=== PATIENT | male | born 1980 | race Caucasian/White ===

== ENCOUNTER 2020-11-06 06:21 | Inpatient (IN) ==
[~2020-11-06 06:21] MED LIST: Acetaminophen IV 1,000 MG/100 ML BAG IVPB ONE; Famotidine 20 MG/2 ML VIAL IVP ONE; Ringers Solution, Lactated 1,000 ML IVC ONE; Ropivacaine/PF 0.5% 49.24 ML, EPINEPHrine 0.5 MG, cloNIDine 0.08 MG, 0.9 % Sodium Chlor... INTRAART ONE
[2020-11-06] MEDS ORDERED: *HR* FentaNYL (PF) 100 MCG/2 ML VIAL ONE (07:12)
[2020-11-06] MEDS ORDERED: *HR* Midazolam HCl 2 MG/2 ML VIAL ONE (07:12)
[2020-11-06] MEDS ORDERED: *HR* Propofol 200 MG/20 ML VIAL IVP ONE (07:12)
[2020-11-06] MEDS ORDERED: Lidocaine HCL 4 ML Topical Solution (Laryng-O-Jet Kit Sterile Pak) TP ONE (07:12)
[2020-11-06] MEDS ORDERED: Lidocaine -MPF 2% 2 ML VIAL ONE (07:12)
[2020-11-06] MEDS ORDERED: *HR* Succinylcholine 200 MG/10 ML VIAL IVP ONE (07:12)
[2020-11-06] MEDS ORDERED: Ondansetron 4 MG/2 ML VIAL ONE (07:12)
[2020-11-06] MEDS ORDERED: *HR* Rocuronium Bromide 50 MG/5 ML VIAL ONE (07:12)
[2020-11-06] MEDS ORDERED: Vancomycin 1,000 MG VIAL ONE ×2 (07:15→07:25)
[2020-11-06] MEDS ORDERED: *HR* OxyCODONE Immed Rel 5 MG TABLET PO PRN ×2 (07:45→11:41)
[2020-11-06] MEDS ORDERED: Ondansetron 4 MG/2 ML VIAL IVP PRN ×2 (07:45→11:41)
[2020-11-06] MEDS ORDERED: Albuterol 2.5 MG/3 ML NEBULIZER IH PRN (07:45)
[2020-11-06] MEDS ORDERED: Nitroglycerin 0.4 MG TAB.SUBL SL PRN (07:45)
[2020-11-06] MEDS ORDERED: Naloxone 0.4 MG/ML INJ IVP PRN ×2 (07:45→11:41)
[2020-11-06] MEDS ORDERED: Vancomycin 1,500 MG/265 ML IV.SOLN IVPB ONE ×2 (08:00→20:30)
[2020-11-06] MEDS ORDERED: *HR* HYDROMORPHONE 2 MG/ML VIAL ONE ×2 (08:53→10:09)
[2020-11-06] MEDS ORDERED: Sugammadex Sodium 200 MG/2 ML VIAL IV ONE (09:59)
[2020-11-06] MEDS ORDERED: *HR* Labetalol 20 MG/4 ML SYRINGE IVP PRN (10:41)
[2020-11-06] MEDS: *HR* FentaNYL (PF) 100 MCG/2 ML VIAL IVP PRN ×2 (10:53→11:00)
[2020-11-06] MEDS ORDERED: Sennosides 8.6 MG TABLET PO PRN (11:41)
[2020-11-06] MEDS ORDERED: MOM Conc 10 ML UD.LIQ PO PRN (11:41)
[2020-11-06] MEDS ORDERED: *HR* Promethazine 25 MG/ML VIAL IM PRN (11:41)
[2020-11-06] MEDS: *HR* HYDROmorphone 2 MG TABLET PO PRN ×3 (12:08→21:24)
[2020-11-06] MEDS: *HR* OxyCODONE Immed Rel 5 MG TABLET PO PRN (13:05)
[2020-11-06 14:54] LABS: Hematocrit 46.2 % (37.5-50.1); Mean Corpuscular HGB Conc 32.5 g/dL (31.6-35.5); Mean Corpuscular Hemoglobin 29.6 pg (28.0-33.3); Mean Corpuscular Volume 91.1 fL (83.0-100.0); Mean Platelet Volume 10.5 fL (9.4-12.4); Platelet Count 270 K/mcL (140-400); Red Blood Count 5.07 M/mcL (4.19-5.50); Red Cell Distribution Width 13.7 % (11.5-14.5); White Blood Count 26.5 K/mcL (4.3-11.1)
[2020-11-06 15:09] LABS: BUN/Creatinine Ratio 13 (6-26); Blood Urea Nitrogen 15 mg/dL (6-20); Carbon Dioxide 20 mEq/L (23-29); Chloride 103 mEq/L (98-107); Glucose 235 mg/dL (70-105); Osmolality,Calculated 288 (280-300); Potassium 4.4 mEq/L (3.5-5.1); Sodium 135 mEq/L (136-145); eGFR For African Americans > 60 (> 60); eGFR For Non-African Americans > 60 (> 60)
[2020-11-06] MEDS: Ascorbic Acid 500 MG TABLET PO SCH (15:55)
[2020-11-06] MEDS: Gabapentin 300 MG CAPSULE PO SCH ×2 (15:55→20:07)
[2020-11-06 16:00] LABS: Lymphocytes # 2.1 K/mcL (0.6-4.6); Monocytes # 0.5 K/mcL (0.0-1.3); Neutrophils # 23.9 K/mcL (1.6-8.9); Platelet Estimate Normal (Normal)
[2020-11-06 16:42] LABS: C-Reactive Protein 15 mg/L (Less than 10)
[2020-11-07] MEDS: *HR* HYDROmorphone 2 MG TABLET PO PRN ×2 (03:30→11:12)
[2020-11-07] MEDS: Multivit/Ca/Min/Fe/FA 1 TAB TABLET PO SCH (07:41)
[2020-11-07] MEDS: *HR* OxyCODONE Immed Rel 5 MG TABLET PO PRN ×4 (07:41→23:02)
[2020-11-07] MEDS: Gabapentin 300 MG CAPSULE PO SCH ×3 (07:42→21:50)
[2020-11-07] MEDS: Ascorbic Acid 500 MG TABLET PO SCH ×2 (07:42→17:13)
[2020-11-07] MEDS ORDERED: D5% in Water 1,000 ML IVC PRN (09:03)
[2020-11-07] MEDS ORDERED: Dextrose Gel 15 GM/37.5 ML TUBE PO PRN ×2 (09:03)
[2020-11-07] MEDS ORDERED: *HR* Dextrose 50 % in Water (Vial) 50 ML VIAL IVP PRN (09:03)
[2020-11-07 10:45] LABS: Estimated Average Glucose 131 mg/dl; Hemoglobin A1C 6.2 %
[2020-11-07] MEDS: Vancomycin 1,500 MG/265 ML IV.SOLN IVPB SCH ×2 (11:53→23:03)
[2020-11-07] MEDS: Insulin LISPRO 300 UNITS/3 ML VIAL SUBQ SCH ×2 (14:18→17:23)
[2020-11-07] MEDS: Aspirin Enteric Coated 81 MG Tablet PO SCH (15:12)
[2020-11-08] MEDS: *HR* HYDROmorphone 2 MG TABLET PO PRN ×2 (05:10→14:48)
[2020-11-08] MEDS: Aspirin Enteric Coated 81 MG Tablet PO SCH (08:09)
[2020-11-08] MEDS: Ascorbic Acid 500 MG TABLET PO SCH ×2 (08:09→16:30)
[2020-11-08] MEDS: Gabapentin 300 MG CAPSULE PO SCH ×3 (08:09→19:38)
[2020-11-08] MEDS: *HR* OxyCODONE Immed Rel 5 MG TABLET PO PRN ×3 (08:10→19:38)
[2020-11-08] MEDS: Multivit/Ca/Min/Fe/FA 1 TAB TABLET PO SCH (08:10)
[2020-11-08] MEDS: Insulin LISPRO 300 UNITS/3 ML VIAL SUBQ SCH ×3 (08:11→16:24)
[2020-11-08 10:54] LABS: Basophils # 0.1 K/mcL (0.0-0.2); Basophils % 0.7 %; Eosinophils # 0.3 K/mcL (0.0-0.6); Eosinophils % 1.6 %; Hematocrit 45.6 % (37.5-50.1); Hemoglobin 14.9 g/dL (12.9-16.9); Immature Granulocytes % 1.4 % (0-4); Lymphocytes # 4.4 K/mcL (0.6-4.6); Lymphocytes % 24.1 %; Mean Corpuscular HGB Conc 32.7 g/dL (31.6-35.5); Mean Corpuscular Hemoglobin 29.7 pg (28.0-33.3); Mean Platelet Volume 10.7 fL (9.4-12.4); Monocytes # 1.7 K/mcL (0.0-1.3); Monocytes % 9.6 %; Neutrophils # 11.4 K/mcL (1.6-8.9); Platelet Count 236 K/mcL (140-400); Red Blood Count 5.01 M/mcL (4.19-5.50); Segmented Neutrophils % 62.6 %; White Blood Count 18.2 K/mcL (4.3-11.1)
[2020-11-08] MEDS: Vancomycin 1,750 MG/517.5 ML IV.SOLN IVPB SCH ×2 (11:03→22:41)
[2020-11-08 11:15] LABS: BUN/Creatinine Ratio 13 (6-26); Blood Urea Nitrogen 15 mg/dL (6-20); Calcium 8.7 mg/dL (8.6-10.3); Carbon Dioxide 23 mEq/L (23-29); Chloride 101 mEq/L (98-107); Glucose 122 mg/dL (70-105); Osmolality,Calculated 284 (280-300); Sodium 136 mEq/L (136-145); eGFR For African Americans > 60 (> 60); eGFR For Non-African Americans > 60 (> 60)
[2020-11-08] MEDS: Ringers Solution, Lactated 1,000 ML IVC SCH (19:50)
[2020-11-09] MEDS: *HR* OxyCODONE Immed Rel 5 MG TABLET PO PRN ×3 (00:04→21:36)
[2020-11-09] MEDS: Aspirin Enteric Coated 81 MG Tablet PO SCH (07:22)
[2020-11-09] MEDS: Gabapentin 300 MG CAPSULE PO SCH ×3 (07:23→21:33)
[2020-11-09] MEDS: Multivit/Ca/Min/Fe/FA 1 TAB TABLET PO SCH (07:23)
[2020-11-09] MEDS: Ascorbic Acid 500 MG TABLET PO SCH ×2 (07:23→15:51)
[2020-11-09] MEDS: Insulin LISPRO 300 UNITS/3 ML VIAL SUBQ SCH ×3 (09:30→16:13)
[2020-11-09] MEDS: Vancomycin 1,750 MG/517.5 ML IV.SOLN IVPB SCH (10:53)
[2020-11-09] MEDS: *HR* HYDROmorphone 2 MG TABLET PO PRN (10:53)
[2020-11-09] MEDS: Vancomycin 2,000 MG/520 ML IV.SOLN IVPB SCH (23:07)
[2020-11-10 03:34] LABS: eGFR For African Americans > 60 (> 60); eGFR For Non-African Americans > 60 (> 60)
[2020-11-10] MEDS: *HR* OxyCODONE Immed Rel 5 MG TABLET PO PRN ×5 (06:02→23:47)
[2020-11-10] MEDS: Gabapentin 300 MG CAPSULE PO SCH ×3 (07:49→21:39)
[2020-11-10] MEDS: Aspirin Enteric Coated 81 MG Tablet PO SCH (07:49)
[2020-11-10] MEDS: Multivit/Ca/Min/Fe/FA 1 TAB TABLET PO SCH (07:50)
[2020-11-10] MEDS: Ascorbic Acid 500 MG TABLET PO SCH ×2 (07:50→16:45)
[2020-11-10] MEDS: Insulin LISPRO 300 UNITS/3 ML VIAL SUBQ SCH ×3 (07:50→16:45)
[2020-11-10] MEDS: Vancomycin 2,000 MG/520 ML IV.SOLN IVPB SCH ×2 (10:08→23:47)
[2020-11-10] MEDS ORDERED: Lidocaine -MPF 1% 5 ML AMPUL INFILT ONE (11:42)
[2020-11-11 02:25] LABS: Basophils # 0.1 K/mcL (0.0-0.2); Basophils % 0.6 %; Eosinophils # 0.8 K/mcL (0.0-0.6); Eosinophils % 5.2 %; Lymphocytes # 3.6 K/mcL (0.6-4.6); Lymphocytes % 23.9 %; Mean Corpuscular HGB Conc 32.8 g/dL (31.6-35.5); Mean Corpuscular Hemoglobin 29.8 pg (28.0-33.3); Mean Corpuscular Volume 90.9 fL (83.0-100.0); Mean Platelet Volume 9.7 fL (9.4-12.4); Monocytes # 1.3 K/mcL (0.0-1.3); Monocytes % 8.7 %; Platelet Count 255 K/mcL (140-400); Red Blood Count 4.29 M/mcL (4.19-5.50); Red Cell Distribution Width 13.7 % (11.5-14.5); Segmented Neutrophils % 59.6 %
[2020-11-11 02:26] LABS: Hemoglobin 12.8 g/dL (12.9-16.9)
[2020-11-11 02:46] LABS: BUN/Creatinine Ratio 13 (6-26); Blood Urea Nitrogen 13 mg/dL (6-20); C-Reactive Protein 139 mg/L (Less than 10); Calcium 8.3 mg/dL (8.6-10.3); Carbon Dioxide 26 mEq/L (23-29); Chloride 104 mEq/L (98-107); Glucose 122 mg/dL (70-105); Osmolality,Calculated 289 (280-300); Potassium 3.9 mEq/L (3.5-5.1); Sodium 139 mEq/L (136-145); eGFR For African Americans > 60 (> 60); eGFR For Non-African Americans > 60 (> 60)
[2020-11-11] MEDS: Ascorbic Acid 500 MG TABLET PO SCH ×2 (07:33→16:41)
[2020-11-11] MEDS: Aspirin Enteric Coated 81 MG Tablet PO SCH (07:33)
[2020-11-11] MEDS: Multivit/Ca/Min/Fe/FA 1 TAB TABLET PO SCH (07:33)
[2020-11-11] MEDS: *HR* OxyCODONE Immed Rel 5 MG TABLET PO PRN ×3 (07:34→16:41)
[2020-11-11] MEDS: Gabapentin 300 MG CAPSULE PO SCH ×3 (07:34→20:02)
[2020-11-11] MEDS: Insulin LISPRO 300 UNITS/3 ML VIAL SUBQ SCH ×3 (07:45→16:36)
[2020-11-11] MEDS: Vancomycin 1,500 MG/265 ML IV.SOLN IVPB SCH ×2 (14:44→20:02)
[2020-11-11] MEDS: *HR* HYDROmorphone 2 MG TABLET PO PRN (20:02)
[2020-11-12] MEDS: *HR* OxyCODONE Immed Rel 5 MG TABLET PO PRN ×3 (00:52→21:35)
[2020-11-12] MEDS: Vancomycin 1,500 MG/265 ML IV.SOLN IVPB SCH (04:49)
[2020-11-12] MEDS: Gabapentin 300 MG CAPSULE PO SCH ×3 (07:59→20:06)
[2020-11-12] MEDS: Aspirin Enteric Coated 81 MG Tablet PO SCH (07:59)
[2020-11-12] MEDS: Ascorbic Acid 500 MG TABLET PO SCH ×2 (07:59→17:42)
[2020-11-12] MEDS: Multivit/Ca/Min/Fe/FA 1 TAB TABLET PO SCH (08:00)
[2020-11-12] MEDS: *HR* HYDROmorphone 2 MG TABLET PO PRN ×3 (08:15→20:06)
[2020-11-12] MEDS: Insulin LISPRO 300 UNITS/3 ML VIAL SUBQ SCH ×3 (08:35→19:01)
[2020-11-12] MEDS: Vancomycin 1,750 MG/517.5 ML IV.SOLN IVPB SCH (17:42)
[2020-11-13] MEDS: *HR* OxyCODONE Immed Rel 5 MG TABLET PO PRN ×2 (02:42→09:09)
[2020-11-13] MEDS: Vancomycin 1,750 MG/517.5 ML IV.SOLN IVPB SCH ×2 (03:26→09:09)
[2020-11-13 07:30] VITALS: BP 110/71
[2020-11-13] MEDS: Insulin LISPRO 300 UNITS/3 ML VIAL SUBQ SCH (08:01)
[2020-11-13] MEDS: Ascorbic Acid 500 MG TABLET PO SCH (09:01)
[2020-11-13] MEDS: Multivit/Ca/Min/Fe/FA 1 TAB TABLET PO SCH (09:01)
[2020-11-13] MEDS: Gabapentin 300 MG CAPSULE PO SCH (09:02)
[2020-11-13] MEDS: Aspirin Enteric Coated 81 MG Tablet PO SCH (09:02)
== END 2020-11-13 10:45 | DRG 464 ==
LOC: SAMDAY 06:21 → 3NENU 12:00
PROVIDERS: ADMIT Internal Medicine; ATTEND Orthopaedic Surgery

== ENCOUNTER 2021-01-07 07:56 | Inpatient (IN) ==
[~2021-01-07 07:56] MED LIST changes: -Acetaminophen IV 1,000 MG/100 ML BAG IVPB ONE; -Famotidine 20 MG/2 ML VIAL IVP ONE; +Povidone-Iodine 45 ML, Sodium Chloride IRRigation 1,000 ML IR ONE; -Ringers Solution, Lactated 1,000 ML IVC ONE
[2021-01-07] MEDS ORDERED: CeFAZolin Syr 2,000MG/20 ML 2,000 MG/20 ML SYRINGE IVPB ONE (08:23)
[2021-01-07] MEDS ORDERED: Vancomycin 1,500 MG/265 ML IV.SOLN IVPB ONE ×2 (08:23→21:00)
[2021-01-07] MEDS ORDERED: Gentamicin 440 MG in 0.9 % Sodium Chloride 100 ML IVPB ONE (08:24)
[2021-01-07] MEDS ORDERED: Ringers Solution, Lactated 1,000 ML IVC SCH (08:30)
[2021-01-07] MEDS ORDERED: *HR* Midazolam HCl 2 MG/2 ML VIAL ONE (08:39)
[2021-01-07] MEDS ORDERED: Ondansetron 4 MG/2 ML VIAL ONE (09:10)
[2021-01-07] MEDS ORDERED: *HR* FentaNYL (PF) 100 MCG/2 ML VIAL ONE ×3 (09:10→16:07)
[2021-01-07] MEDS ORDERED: *HR* Propofol 200 MG/20 ML VIAL IVP ONE (09:10)
[2021-01-07] MEDS ORDERED: Lidocaine -MPF 2% 2 ML VIAL ONE (09:10)
[2021-01-07] MEDS ORDERED: *HR* FentaNYL (PF) 100 MCG/2 ML VIAL IVP PRN (09:24)
[2021-01-07] MEDS ORDERED: Ondansetron 4 MG/2 ML VIAL IVP PRN (09:24)
[2021-01-07] MEDS ORDERED: Famotidine 20 MG TABLET PO ONE (09:24)
[2021-01-07] MEDS ORDERED: Ethanol\\Acetic Acid\\Na Ace\\Ben 1,000 ML IRRIG.SOLN IR ONE ×2 (09:44→10:39)
[2021-01-07] MEDS ORDERED: Tobramycin Sulf (Sterile) 1.2 GM VIAL ONE ×3 (10:40→11:27)
[2021-01-07] MEDS ORDERED: Vancomycin 1,000 MG VIAL ONE ×2 (10:40→11:28)
[2021-01-07] MEDS ORDERED: Ropivacaine/PF 0.5% 30 ML VIAL ONE (10:47)
[2021-01-07] MEDS ORDERED: Hydrogen Peroxide (Sterile) 473 ML ONE (10:48)
[2021-01-07] MEDS ORDERED: ROPIVACAINE/PF/NS 0.25% 1 EACH SYRINGE INTRAART ONE (11:05)
[2021-01-07] MEDS ORDERED: *HR* Succinylcholine 200 MG/10 ML VIAL IVP ONE (12:05)
[2021-01-07] MEDS ORDERED: Tranexamic Acid 1,000 MG/10 ML VIAL ONE (12:52)
[2021-01-07 13:11] LABS: Source,Synovial Fluid Right Knee
[2021-01-07] MEDS ORDERED: *HR* Rocuronium Bromide 50 MG/5 ML VIAL ONE ×2 (13:59)
[2021-01-07 14:08] LABS: Appearance,Synovial Fluid Bloody (Clear-Hazy); Color,Synovial Fluid Red (Straw)
[2021-01-07] MEDS ORDERED: Sugammadex Sodium 200 MG/2 ML VIAL IV ONE (16:04)
[2021-01-07] MEDS: *HR* HYDROmorphone PF 0.5 MG/0.5 ML SYRINGE IVP PRN ×4 (16:56→17:24)
[2021-01-07] MEDS ORDERED: Sennosides 8.6 MG TABLET PO PRN (18:27)
[2021-01-07] MEDS ORDERED: *HR* Promethazine 25 MG/ML VIAL IM PRN (18:27)
[2021-01-07] MEDS ORDERED: MOM Conc 10 ML UD.LIQ PO PRN (18:27)
[2021-01-07] MEDS ORDERED: *HR* OxyCODONE Immed Rel 5 MG TABLET PO PRN (18:27)
[2021-01-07] MEDS ORDERED: Naloxone 0.4 MG/ML INJ IVP PRN (18:27)
[2021-01-07] MEDS: *HR* OxyCODONE Immed Rel 5 MG TABLET PO PRN ×2 (18:56→23:03)
[2021-01-07] MEDS: Gabapentin 300 MG CAPSULE PO SCH (20:41)
[2021-01-07] MEDS: DAPTOmycin 500 MG in 0.9 % Sodium Chloride 100 ML IVPB SCH (21:28)
[2021-01-08] MEDS: CeFAZolin 2 GM/120 ML BAG IVPB SCH ×2 (00:34→09:13)
[2021-01-08 05:50] LABS: Basophils % 0.1 %; Hematocrit 31.1 % (37.5-50.1); Hemoglobin 10.5 g/dL (12.9-16.9); Lymphocytes # 2.9 K/mcL (0.6-4.6); Lymphocytes % 15.4 %; Mean Corpuscular HGB Conc 33.8 g/dL (31.6-35.5); Mean Corpuscular Hemoglobin 29.5 pg (28.0-33.3); Mean Corpuscular Volume 87.4 fL (83.0-100.0); Mean Platelet Volume 10.3 fL (9.4-12.4); Monocytes # 1.9 K/mcL (0.0-1.3); Monocytes % 9.9 %; Neutrophils # 14.1 K/mcL (1.6-8.9); Platelet Count 246 K/mcL (140-400); Red Blood Count 3.56 M/mcL (4.19-5.50); Red Cell Distribution Width 13.2 % (11.5-14.5); Segmented Neutrophils % 73.6 %; White Blood Count 19.1 K/mcL (4.3-11.1)
[2021-01-08 07:47] LABS: BUN/Creatinine Ratio 12 (6-26); Blood Urea Nitrogen 14 mg/dL (6-20); Calcium 8.2 mg/dL (8.6-10.3); Carbon Dioxide 22 mEq/L (23-29); Chloride 104 mEq/L (98-107); Glucose 170 mg/dL (70-105); Osmolality,Calculated 282 (280-300); Potassium 4.4 mEq/L (3.5-5.1); Sodium 134 mEq/L (136-145); eGFR For African Americans > 60 (> 60); eGFR For Non-African Americans > 60 (> 60)
[2021-01-08] MEDS: Gabapentin 300 MG CAPSULE PO SCH ×3 (08:54→20:34)
[2021-01-08] MEDS: Ascorbic Acid 500 MG TABLET PO SCH ×2 (08:54→16:44)
[2021-01-08] MEDS: Multivit/Ca/Min/Fe/FA 1 TAB TABLET PO SCH (08:54)
[2021-01-08] MEDS ORDERED: Celecoxib 200 MG CAPSULE PO SCH (09:00)
[2021-01-08] MEDS: *HR* OxyCODONE Immed Rel 5 MG TABLET PO PRN ×3 (09:02→22:14)
[2021-01-08] MEDS: Ringers Solution, Lactated 1,000 ML IVC SCH (09:06)
[2021-01-08] MEDS: 0.9 % Sodium Chloride 1,000 ML IVC SCH ×3 (11:59→20:34)
[2021-01-08] MEDS: DAPTOmycin 500 MG in 0.9 % Sodium Chloride 100 ML IVPB SCH (17:40)
[2021-01-08] MEDS: *HR* HYDROmorphone (PF) 1 MG/ML SYRINGE IVP PRN (23:55)
[2021-01-09] MEDS: Ringers Solution, Lactated 1,000 ML IVC SCH (00:05)
[2021-01-09] MEDS: *HR* OxyCODONE Immed Rel 5 MG TABLET PO PRN ×5 (02:15→20:44)
[2021-01-09] MEDS: *HR* HYDROmorphone (PF) 1 MG/ML SYRINGE IVP PRN (03:55)
[2021-01-09] MEDS: 0.9 % Sodium Chloride 1,000 ML IVC SCH ×2 (05:35→17:43)
[2021-01-09] MEDS: *HR* Rivaroxaban 10 MG TABLET PO SCH ×2 (05:44→06:19)
[2021-01-09 06:54] LABS: Basophils % 0.2 %; Eosinophils # 0.1 K/mcL (0.0-0.6); Eosinophils % 0.8 %; Hematocrit 25.3 % (37.5-50.1); Hemoglobin 8.4 g/dL (12.9-16.9); Immature Granulocytes % 1.3 % (0-4); Lymphocytes # 4.9 K/mcL (0.6-4.6); Lymphocytes % 30.2 %; Mean Corpuscular HGB Conc 33.2 g/dL (31.6-35.5); Mean Corpuscular Hemoglobin 29.3 pg (28.0-33.3); Mean Corpuscular Volume 88.2 fL (83.0-100.0); Mean Platelet Volume 10.8 fL (9.4-12.4); Monocytes # 1.3 K/mcL (0.0-1.3); Monocytes % 8.2 %; Neutrophils # 9.6 K/mcL (1.6-8.9); Nucleated Red Blood Cells 0.1 /100 WBC (0); Platelet Count 181 K/mcL (140-400); Red Blood Count 2.87 M/mcL (4.19-5.50); Red Cell Distribution Width 13.6 % (11.5-14.5); Segmented Neutrophils % 59.3 %; White Blood Count 16.2 K/mcL (4.3-11.1)
[2021-01-09 07:09] LABS: BUN/Creatinine Ratio 11 (6-26); Blood Urea Nitrogen 12 mg/dL (6-20); Calcium 7.5 mg/dL (8.6-10.3); Carbon Dioxide 23 mEq/L (23-29); Chloride 107 mEq/L (98-107); Glucose 93 mg/dL (70-105); Osmolality,Calculated 283 (280-300); Potassium 3.7 mEq/L (3.5-5.1); Sodium 137 mEq/L (136-145); eGFR For African Americans > 60 (> 60); eGFR For Non-African Americans > 60 (> 60)
[2021-01-09] MEDS: Multivit/Ca/Min/Fe/FA 1 TAB TABLET PO SCH (09:16)
[2021-01-09] MEDS: Gabapentin 300 MG CAPSULE PO SCH ×3 (09:16→20:44)
[2021-01-09] MEDS: Ascorbic Acid 500 MG TABLET PO SCH ×2 (09:16→16:22)
[2021-01-09] MEDS: DAPTOmycin 500 MG in 0.9 % Sodium Chloride 100 ML IVPB SCH (19:01)
[2021-01-10] MEDS: *HR* HYDROmorphone (PF) 1 MG/ML SYRINGE IVP PRN (00:03)
[2021-01-10] MEDS: 0.9 % Sodium Chloride 1,000 ML IVC SCH ×2 (01:56→09:57)
[2021-01-10] MEDS: *HR* OxyCODONE Immed Rel 5 MG TABLET PO PRN ×4 (03:52→21:24)
[2021-01-10] MEDS: *HR* Rivaroxaban 10 MG TABLET PO SCH ×2 (09:53→09:55)
[2021-01-10] MEDS: Ascorbic Acid 500 MG TABLET PO SCH ×2 (09:53→18:18)
[2021-01-10] MEDS: Multivit/Ca/Min/Fe/FA 1 TAB TABLET PO SCH (09:55)
[2021-01-10] MEDS: Gabapentin 300 MG CAPSULE PO SCH ×3 (09:55→21:19)
[2021-01-10] MEDS: DAPTOmycin 500 MG in 0.9 % Sodium Chloride 100 ML IVPB SCH (18:18)
[2021-01-10 19:06] LABS: Basophils % 0.4 %; Eosinophils # 0.5 K/mcL (0.0-0.6); Eosinophils % 4.2 %; Hematocrit 26.6 % (37.5-50.1); Immature Granulocytes % 2.6 % (0-4); Lymphocytes # 3.4 K/mcL (0.6-4.6); Lymphocytes % 31.7 %; Mean Corpuscular HGB Conc 33.8 g/dL (31.6-35.5); Mean Corpuscular Hemoglobin 30.3 pg (28.0-33.3); Mean Corpuscular Volume 89.6 fL (83.0-100.0); Mean Platelet Volume 10.3 fL (9.4-12.4); Monocytes # 0.7 K/mcL (0.0-1.3); Monocytes % 6.1 %; Neutrophils # 5.9 K/mcL (1.6-8.9); Nucleated Red Blood Cells 0.5 /100 WBC (0); Platelet Count 231 K/mcL (140-400); Red Blood Count 2.97 M/mcL (4.19-5.50); White Blood Count 10.8 K/mcL (4.3-11.1)
[2021-01-10 19:24] LABS: BUN/Creatinine Ratio 10 (6-26); Blood Urea Nitrogen 10 mg/dL (6-20); Carbon Dioxide 20 mEq/L (23-29); Chloride 108 mEq/L (98-107); Glucose 144 mg/dL (70-105); Osmolality,Calculated 288 (280-300); Potassium 3.7 mEq/L (3.5-5.1); Sodium 138 mEq/L (136-145); eGFR For African Americans > 60 (> 60); eGFR For Non-African Americans > 60 (> 60)
[2021-01-11] MEDS: Multivit/Ca/Min/Fe/FA 1 TAB TABLET PO SCH (09:30)
[2021-01-11] MEDS: *HR* OxyCODONE Immed Rel 5 MG TABLET PO PRN ×2 (09:31→17:20)
[2021-01-11] MEDS: Gabapentin 300 MG CAPSULE PO SCH ×3 (09:31→20:21)
[2021-01-11] MEDS: Ascorbic Acid 500 MG TABLET PO SCH ×2 (09:31→16:58)
[2021-01-11 09:49] LABS: Basophils # 0.1 K/mcL (0.0-0.2); Basophils % 0.5 %; Eosinophils # 0.5 K/mcL (0.0-0.6); Eosinophils % 5.2 %; Hemoglobin 8.7 g/dL (12.9-16.9); Immature Granulocytes % 2.4 % (0-4); Lymphocytes # 3.2 K/mcL (0.6-4.6); Lymphocytes % 32.1 %; Mean Corpuscular HGB Conc 32.2 g/dL (31.6-35.5); Mean Corpuscular Hemoglobin 28.7 pg (28.0-33.3); Mean Corpuscular Volume 89.1 fL (83.0-100.0); Mean Platelet Volume 9.7 fL (9.4-12.4); Monocytes # 0.6 K/mcL (0.0-1.3); Monocytes % 6.4 %; Neutrophils # 5.3 K/mcL (1.6-8.9); Nucleated Red Blood Cells 0.4 /100 WBC (0); Platelet Count 240 K/mcL (140-400); Red Blood Count 3.03 M/mcL (4.19-5.50); Red Cell Distribution Width 14.2 % (11.5-14.5); Segmented Neutrophils % 53.4 %; White Blood Count 9.9 K/mcL (4.3-11.1)
[2021-01-11 10:08] LABS: BUN/Creatinine Ratio 11 (6-26); Blood Urea Nitrogen 12 mg/dL (6-20); Carbon Dioxide 25 mEq/L (23-29); Chloride 107 mEq/L (98-107); Glucose 117 mg/dL (70-105); Osmolality,Calculated 289 (280-300); Potassium 3.7 mEq/L (3.5-5.1); Sodium 139 mEq/L (136-145); eGFR For African Americans > 60 (> 60); eGFR For Non-African Americans > 60 (> 60)
[2021-01-11 11:22] LABS: Calcium 8.4 mg/dL (8.6-10.3)
[2021-01-11] MEDS: DAPTOmycin 500 MG in 0.9 % Sodium Chloride 100 ML IVPB SCH (17:20)
[2021-01-11] MEDS: *HR* HYDROmorphone (PF) 1 MG/ML SYRINGE IVP PRN (18:25)
[2021-01-12] MEDS: *HR* Rivaroxaban 10 MG TABLET PO SCH (05:02)
[2021-01-12 07:19] VITALS: TEMP 98.6
[2021-01-12] MEDS: Ascorbic Acid 500 MG TABLET PO SCH (08:17)
[2021-01-12] MEDS: Multivit/Ca/Min/Fe/FA 1 TAB TABLET PO SCH (08:17)
[2021-01-12] MEDS: Gabapentin 300 MG CAPSULE PO SCH (08:17)
[2021-01-12 08:18] LABS: BUN/Creatinine Ratio 10 (6-26); Blood Urea Nitrogen 11 mg/dL (6-20); Calcium 8.3 mg/dL (8.6-10.3); Carbon Dioxide 25 mEq/L (23-29); Chloride 105 mEq/L (98-107); Glucose 101 mg/dL (70-105); Osmolality,Calculated 286 (280-300); Potassium 3.7 mEq/L (3.5-5.1); Sodium 138 mEq/L (136-145); eGFR For African Americans > 60 (> 60); eGFR For Non-African Americans > 60 (> 60)
[2021-01-12] MEDS: *HR* OxyCODONE Immed Rel 5 MG TABLET PO PRN (08:18)
[2021-01-12] MEDS ORDERED: *HR* Alteplase (Cathflo) 2 MG VIAL IVP ONE (08:32)
[2021-01-12] MEDS: *HR* HYDROmorphone (PF) 1 MG/ML SYRINGE IVP PRN (09:27)
[2021-01-12 10:34] VITALS: BP 108/64; PULSE 80; O2SAT 96
[2021-01-12 13:03] LABS: Basophils # 0.1 K/mcL (0.0-0.2); Basophils % 0.5 %; Eosinophils # 0.6 K/mcL (0.0-0.6); Eosinophils % 5.7 %; Hematocrit 28.2 % (37.5-50.1); Hemoglobin 8.8 g/dL (12.9-16.9); Lymphocytes # 3.5 K/mcL (0.6-4.6); Lymphocytes % 31.7 %; Mean Corpuscular HGB Conc 31.2 g/dL (31.6-35.5); Mean Corpuscular Hemoglobin 28.6 pg (28.0-33.3); Mean Corpuscular Volume 91.6 fL (83.0-100.0); Mean Platelet Volume 10.8 fL (9.4-12.4); Monocytes # 0.8 K/mcL (0.0-1.3); Monocytes % 7.4 %; Neutrophils # 5.8 K/mcL (1.6-8.9); Nucleated Red Blood Cells 0.2 /100 WBC (0); Platelet Count 284 K/mcL (140-400); Red Blood Count 3.08 M/mcL (4.19-5.50); Red Cell Distribution Width 14.6 % (11.5-14.5); Segmented Neutrophils % 52.7 %
== END 2021-01-12 13:57 | disposition home health service (06) | DRG 487 ==
LOC: SAMDAY 07:56 → 3NENU 18:04
PROVIDERS: ADMIT Orthopaedic Surgery; ATTEND Orthopaedic Surgery